=== PATIENT | female | born 1965 | race Caucasian/White ===

== ENCOUNTER 2018-10-03 10:45 | Emergency (ER) | payer OTHER ==
[~2018-10-03] VITALS: Ht 152.4 cm; Wt 54.4 kg
[~2018-10-03 10:45] MED LIST: AMIT50; ASPI81CH PO; ATOR10; Ativan0.5 MG PO; BUPR150T2 PO; CARV3.125 PO; CEPH500 PO; CLOP75 PO; CODACE30 PO; CONEST1.25; ENTRESTO 24 MG1 EACH PO; FURO40 PO; KETO10 PO; METCAR500 PO; MUPI1NAS; NAPR500 PO; OXYACE5T PO; PROACE100 PO; PROC10 PO; PROM25 PO; SIMV40 PO; SPIR25 PO; Vistaril25 MG PO; ZYRTEC10 M2 PO
[2018-10-03] MEDS ORDERED: ALLERGY10 MG PO (11:24)
== END 2018-10-03 13:43 | disposition home or self-care (01) ==
LOC: ER 10:45
DX: S09.90XA Unspecified injury of head, initial encounter (principal); S29.012A Strain of muscle and tendon of back wall of thorax, initial encounter; F17.210 Nicotine dependence, cigarettes, uncomplicated; Z88.1 Allergy status to other antibiotic agents; Z88.5 Allergy status to narcotic agent; Z88.8 Allergy status to other drugs, medicaments and biological substances; Z79.02 Long term (current) use of antithrombotics/antiplatelets; Z79.82 Long term (current) use of aspirin; Z79.899 Other long term (current) drug therapy; W00.0XXA Fall on same level due to ice and snow, initial encounter
CPT/HCPCS: 70450; 71046; 99284-25

== ENCOUNTER 2019-05-30 08:19 | Emergency (ER) | payer OTHER ==
[~2019-05-30] VITALS: Ht 152.4 cm; Wt 55.8 kg
[~2019-05-30 08:19] MED LIST changes: +ALLERGY10 MG PO
[2019-05-30] MEDS ORDERED: ROPI.25 PO (09:03)
[2019-05-30] MEDS ORDERED: TYLECOD3 PO (09:47)
== END 2019-05-30 10:10 | disposition home or self-care (01) ==
LOC: ER 08:19
DX: S20.211A Contusion of right front wall of thorax, initial encounter (principal); I11.0 Hypertensive heart disease with heart failure; I50.9 Heart failure, unspecified; J44.9 Chronic obstructive pulmonary disease, unspecified; E78.00 Pure hypercholesterolemia, unspecified; I25.2 Old myocardial infarction; I25.10 Atherosclerotic heart disease of native coronary artery without angina pectoris; F17.200 Nicotine dependence, unspecified, uncomplicated; Z88.6 Allergy status to analgesic agent; Z88.8 Allergy status to other drugs, medicaments and biological substances; Z88.1 Allergy status to other antibiotic agents; Z79.899 Other long term (current) drug therapy; Z79.82 Long term (current) use of aspirin; W10.9XXA Fall (on) (from) unspecified stairs and steps, initial encounter
CPT/HCPCS: 71101

== ENCOUNTER 2019-08-19 09:20 | Emergency (ER) | payer OTHER ==
[~2019-08-19] VITALS: Ht 152.4 cm; Wt 56.2 kg
[~2019-08-19 09:20] MED LIST changes: +ROPI.25 PO; +TYLECOD3 PO
== END 2019-08-19 10:24 | disposition home or self-care (01) ==
LOC: ER 09:20
DX: R04.0 Epistaxis (principal); J44.9 Chronic obstructive pulmonary disease, unspecified; I11.0 Hypertensive heart disease with heart failure; I50.9 Heart failure, unspecified; I25.10 Atherosclerotic heart disease of native coronary artery without angina pectoris; F17.200 Nicotine dependence, unspecified, uncomplicated; Z88.1 Allergy status to other antibiotic agents; Z88.5 Allergy status to narcotic agent; Z88.8 Allergy status to other drugs, medicaments and biological substances; Z79.82 Long term (current) use of aspirin; Z79.899 Other long term (current) drug therapy
CPT/HCPCS: 99283

== ENCOUNTER 2019-08-19 14:13 | Emergency (ER) | payer OTHER | END 2019-08-19 14:37 | disposition left against medical advice (07) | LOC: ER 14:13 | DX: Z53.21 Procedure and treatment not carried out due to patient leaving prior to being seen by health care provider (principal) ==

== ENCOUNTER 2021-04-18 11:27 | Emergency (ER) | payer OTHER ==
[~2021-04-18] VITALS: Ht 152.4 cm; Wt 59.9 kg
[~2021-04-18 11:27] MED LIST changes: +ACET500 PO; +Aspir 8181 MG PO; +Crestor20 MG PO; +MIRT15 PO
[2021-04-18] MEDS ORDERED: PLAVIX75 MG PO (12:01)
[2021-04-18 12:42] LABS: Albumin, Blood 3.6 g/dL (3.4-5.0); Albumin/Globulin Ratio 0.9 (0.8-1.8); BASOPHILS ABSOLUTE AUTO 0.02 K/mm3 (0.00-0.23); BASOPHILS PERCENT AUTO 0 % (0-2); Bilirubin, Total 0.5 mg/dL (0.1-1.0); Bun/Creatinine Ratio 14.9 (12.0-20.0); Calcium, Blood 8.4 mg/dL (8.5-10.1); Creatinine, Blood 1.21 mg/dL (0.40-1.00); EOSINOPHILS PERCENT AUTO 0 % (0-6); Globulin, Blood 3.9 g/dL (2.2-4.0); Hematocrit 39.7 % (33.0-51.0); Hemoglobin 12.9 g/dL (11.5-16.0); IMMATURE GRAN ABSOLUTE AUTO 0.05 K/mm3 (0.00-0.10); IMMATURE GRAN PERCENT AUTO 1 % (0-1); LYMPHOCYTES ABSOLUTE AUTO 1.81 K/mm3 (0.84-5.20); LYMPHOCYTES PERCENT AUTO 38 % (21-46); MONOCYTES ABSOLUTE AUTO 0.42 K/mm3 (0.16-1.47); MONOCYTES PERCENT AUTO 9 % (4-13); Mean Corpuscular HGB 30.2 pg (26.0-34.0); Mean Corpuscular HGB Conc 32.5 g/dL (31.5-36.5); Mean Corpuscular Volume 93 fL (80-100); Mean Platelet Volume 10.3 fL (9.1-12.4); NEUTROPHILS ABSOLUTE AUTO 2.45 K/mm3 (1.96-9.15); NEUTROPHILS PERCENT AUTO 52 % (41-73); Platelet Count 113 K/mm3 (150-400); Potassium, Blood 4.4 mmol/L (3.5-5.5); RDW Coefficient Variation 14.5 % (11.7-14.2); RDW Standard Deviation 49.5 fL (35.1-46.3); Red Blood Cell Count 4.27 M/mm3 (3.80-5.20); Total Protein, Blood 7.5 g/dL (6.4-8.2); Troponin I 0.035 ng/mL (0.000-0.040); White Blood Cell Count 4.75 K/mm3 (4.00-11.30)
[2021-04-18 13:09] LABS: International Normalized Ratio 1.01; Prothrombin Time Results 10.9 Sec (9.7-11.5)
[2021-04-18] MEDS ORDERED: DEXA6 PO (13:25)
[2021-04-18] MEDS ORDERED: BENZ100A PO (13:25)
== END 2021-04-18 16:25 | disposition home or self-care (01) ==
LOC: ER 11:27
PROVIDERS: Emergency Medicine
DX: U07.1 COVID-19 (principal); J12.82 Pneumonia due to coronavirus disease 2019; J44.9 Chronic obstructive pulmonary disease, unspecified; I25.2 Old myocardial infarction; I11.0 Hypertensive heart disease with heart failure; I50.9 Heart failure, unspecified; I25.10 Atherosclerotic heart disease of native coronary artery without angina pectoris; Z88.1 Allergy status to other antibiotic agents; Z88.5 Allergy status to narcotic agent; Z88.8 Allergy status to other drugs, medicaments and biological substances; Z79.899 Other long term (current) drug therapy; Z79.02 Long term (current) use of antithrombotics/antiplatelets; Z79.82 Long term (current) use of aspirin; Z87.891 Personal history of nicotine dependence
CPT/HCPCS: 36415; 71045; 80053; 83690; 84484; 85025; 85610; 93005; 93010; 96374; 99284-25; J1100

== ENCOUNTER 2021-04-21 06:57 | Emergency (ER) | payer OTHER ==
[~2021-04-21] VITALS: Ht 152.4 cm; Wt 59.9 kg
[~2021-04-21 06:57] MED LIST changes: +BENZ100A PO; +DEXA6 PO; +PLAVIX75 MG PO
[2021-04-21] MEDS ORDERED: Ropinirole HCl0.5 MG PO (07:16)
[2021-04-21 07:53] LABS: BASOPHILS ABSOLUTE AUTO 0.01 K/mm3 (0.00-0.23); BASOPHILS PERCENT AUTO 0 % (0-2); EOSINOPHILS PERCENT AUTO 0 % (0-6); Hematocrit 36.8 % (33.0-51.0); Hemoglobin 12.5 g/dL (11.5-16.0); IMMATURE GRAN ABSOLUTE AUTO 0.04 K/mm3 (0.00-0.10); IMMATURE GRAN PERCENT AUTO 1 % (0-1); LYMPHOCYTES ABSOLUTE AUTO 1.05 K/mm3 (0.84-5.20); LYMPHOCYTES PERCENT AUTO 29 % (21-46); MONOCYTES ABSOLUTE AUTO 0.13 K/mm3 (0.16-1.47); MONOCYTES PERCENT AUTO 4 % (4-13); Mean Corpuscular HGB 31.3 pg (26.0-34.0); Mean Corpuscular Volume 92 fL (80-100); Mean Platelet Volume 11.6 fL (9.1-12.4); NEUTROPHILS ABSOLUTE AUTO 2.37 K/mm3 (1.96-9.15); NEUTROPHILS PERCENT AUTO 66 % (41-73); Platelet Count 174 K/mm3 (150-400); RDW Coefficient Variation 14.5 % (11.7-14.2); RDW Standard Deviation 49.1 fL (35.1-46.3); Red Blood Cell Count 3.99 M/mm3 (3.80-5.20)
[2021-04-21 08:15] LABS: Troponin I 0.04 ng/mL (0.000-0.040)
[2021-04-21 08:21] LABS: Albumin, Blood 3.2 g/dL (3.4-5.0); Albumin/Globulin Ratio 0.8 (0.8-1.8); Bilirubin, Total 0.6 mg/dL (0.1-1.0); Bun/Creatinine Ratio 20.4 (12.0-20.0); Calcium, Blood 8.2 mg/dL (8.5-10.1); Creatinine, Blood 1.08 mg/dL (0.40-1.00); Globulin, Blood 4.1 g/dL (2.2-4.0); Potassium, Blood 5.4 mmol/L (3.5-5.5); Total Protein, Blood 7.3 g/dL (6.4-8.2)
== END 2021-04-21 09:55 | disposition home or self-care (01) ==
LOC: ER 06:57
PROVIDERS: Emergency Medicine
DX: U07.1 COVID-19 (principal); R04.0 Epistaxis; I25.2 Old myocardial infarction; J44.9 Chronic obstructive pulmonary disease, unspecified; I11.0 Hypertensive heart disease with heart failure; I50.9 Heart failure, unspecified; I25.10 Atherosclerotic heart disease of native coronary artery without angina pectoris; Z88.1 Allergy status to other antibiotic agents; Z88.5 Allergy status to narcotic agent; Z88.8 Allergy status to other drugs, medicaments and biological substances; Z79.899 Other long term (current) drug therapy; Z79.02 Long term (current) use of antithrombotics/antiplatelets; Z79.82 Long term (current) use of aspirin; Z87.891 Personal history of nicotine dependence
CPT/HCPCS: 71045; 80053; 82947; 83880; 84484; 85025; 93005; 93010; 99284-25; A9270

== ENCOUNTER 2021-04-23 13:50 | Inpatient (IN) | payer OTHER ==
[~2021-04-23] VITALS: Ht 152.4 cm; Wt 65.3 kg
[~2021-04-23 13:50] MED LIST changes: -ACET500; -Cetirizine HCl10 MG; -ROPINIROLE HCL0.5 MG PO
[2021-04-23 14:37] LABS: BASOPHILS ABSOLUTE AUTO 0.01 K/mm3 (0.00-0.23); BASOPHILS PERCENT AUTO 0 % (0-2); EOSINOPHILS PERCENT AUTO 0 % (0-6); Hematocrit 35.6 % (33.0-51.0); Hemoglobin 11.8 g/dL (11.5-16.0); IMMATURE GRAN ABSOLUTE AUTO 0.08 K/mm3 (0.00-0.10); IMMATURE GRAN PERCENT AUTO 1 % (0-1); LYMPHOCYTES ABSOLUTE AUTO 0.77 K/mm3 (0.84-5.20); LYMPHOCYTES PERCENT AUTO 8 % (21-46); MONOCYTES PERCENT AUTO 2 % (4-13); Mean Corpuscular HGB 30.3 pg (26.0-34.0); Mean Corpuscular HGB Conc 33.1 g/dL (31.5-36.5); Mean Corpuscular Volume 92 fL (80-100); Mean Platelet Volume 11.5 fL (9.1-12.4); NEUTROPHILS ABSOLUTE AUTO 8.61 K/mm3 (1.96-9.15); NEUTROPHILS PERCENT AUTO 89 % (41-73); Platelet Count 129 K/mm3 (150-400); RDW Coefficient Variation 14.5 % (11.7-14.2); RDW Standard Deviation 48.5 fL (35.1-46.3); Red Blood Cell Count 3.89 M/mm3 (3.80-5.20); White Blood Cell Count 9.67 K/mm3 (4.00-11.30)
[2021-04-23 14:59] LABS: Alanine Aminotransfer (ALT/SGP 112 U/L (12-78); Albumin, Blood 2.9 g/dL (3.4-5.0); Albumin/Globulin Ratio 0.7 (0.8-1.8); Alk Phos 57 U/L (50-136); Anion Gap 8 mmol/L (6-16); Aspartate Aminotrans (AST/SGOT 119 U/L (12-37); Bilirubin, Total 0.6 mg/dL (0.1-1.0); Blood Urea Nitrogen 26 mg/dL (8-24); Bun/Creatinine Ratio 28.7 (12.0-20.0); CO2, Blood 22 mmol/L (21-32); Calcium, Blood 7.6 mg/dL (8.5-10.1); Chloride, Blood 110 mmol/L (98-108); Creatinine, Blood 0.91 mg/dL (0.40-1.00); Glomerular Filtration Rate >60 (60-); Glucose, Blood 162 mg/dL (70-99); Potassium, Blood 4.5 mmol/L (3.5-5.5); Sodium, Blood 140 mmol/L (136-145); Total Protein, Blood 6.9 g/dL (6.4-8.2); Troponin I 0.028 ng/mL (0.000-0.040)
[2021-04-23 15:02] LABS: Base Excess Venous -1.7 mmol/L; Bicarbonate Venous 23.4 mmol/L (24.0-30.0); PCO2 Venous 33.6 mmHg (38-42); PO2 Venous 98.3 mmHg (38-42); pH Blood Venous 7.44 (7.34-7.37)
[2021-04-23 15:08] LABS: Source, Urine Voided
[2021-04-23 15:15] LABS: Appearance, Urine Clear (Clear); Bilirubin, Urine Neg (Neg); Blood, Urine 2+ (Neg); Color, Urine Yellow (P-Yellow); Glucose Qualitative, Urine Neg (Neg); Ketones, Urine Neg (Neg); Leukocyte Esterase, Urine Neg (Neg); Nitrite, Urine Neg (Neg); Protein, Urine 3+ (Neg); Specific Gravity, Urine 1.025 (1.003-1.022); Urobilinogen, Urine NORM (Normal)
[2021-04-23 15:21] LABS: Squamous Epithelial Cells Many /hpf (Few)
[2021-04-23 15:22] LABS: Bacteria Mod /hpf
[2021-04-23 15:27] LABS: Granular Casts 0-2 /lpf (0); Red Blood Cells, Urine 0-2 /hpf (0-2); Transitional Epithelial Cells Rare /hpf (0-Rare); White Blood Cells, Urine 0-2 /hpf (0-5)
[2021-04-23] MEDS ORDERED: ACET500 (16:42)
[2021-04-23] MEDS ORDERED: ROPINIROLE HCL0.5 MG PO (16:43)
[2021-04-23] MEDS ORDERED: Cetirizine HCl10 MG (16:44)
--- NOTE | 2021-04-23 18:30 | NUR ---
SHIFT SUMMARY: PT ARRIVED TO UNIT AROUND 1740. ALERT AND ORIETNED DYSPNEA WITH EXERTION COUGHING UP PHLEM INTERMITTENTLY. ABLE TO MAKE NEEDS KNOWN. SATTING MID 80S TO LOW 90S ON 15L NON REBREATHER.
--- NOTE | 2021-04-24 05:17 | NUR ---
ALERT AND ORIENTED X 4. 15 LITERS NONREBREATHER AND 13 LITERS HIGH FLOW NASAL CANNULA. COMPLAINS OF A CYST ON BUTTOCKS THAT IS PAINFUL, OTHERWISE, DENIES ANY PAIN. DENIES ANY NAUSEA. INDEPENDENT TO BSC. DBP HAS BEEN RUNNING IN MID 40S. MD MCCALL WAS NOTIFIED LAST NIGHT. WILL CONTINUE TO OBSERVE/MONITOR FOR SYMPTOMS OF HYPOTENSIVE EPISODES. CURRENTLY, PATIENT IS COMPLETELY NON SYMPTOMATIC. ALL OTHER VITAL SIGNS ARE STABLE.
[2021-04-24 05:26] LABS: BASOPHILS ABSOLUTE AUTO 0.01 K/mm3 (0.00-0.23); BASOPHILS PERCENT AUTO 0 % (0-2); EOSINOPHILS PERCENT AUTO 0 % (0-6); Hematocrit 34.8 % (33.0-51.0); Hemoglobin 11.4 g/dL (11.5-16.0); IMMATURE GRAN PERCENT AUTO 1 % (0-1); LYMPHOCYTES ABSOLUTE AUTO 1.08 K/mm3 (0.84-5.20); LYMPHOCYTES PERCENT AUTO 14 % (21-46); MONOCYTES ABSOLUTE AUTO 0.35 K/mm3 (0.16-1.47); MONOCYTES PERCENT AUTO 5 % (4-13); Mean Corpuscular HGB 30.5 pg (26.0-34.0); Mean Corpuscular HGB Conc 32.8 g/dL (31.5-36.5); Mean Corpuscular Volume 93 fL (80-100); Mean Platelet Volume 10.7 fL (9.1-12.4); NEUTROPHILS ABSOLUTE AUTO 6.14 K/mm3 (1.96-9.15); NEUTROPHILS PERCENT AUTO 80 % (41-73); Platelet Count 109 K/mm3 (150-400); RDW Coefficient Variation 14.6 % (11.7-14.2); RDW Standard Deviation 49.9 fL (35.1-46.3); Red Blood Cell Count 3.74 M/mm3 (3.80-5.20); White Blood Cell Count 7.68 K/mm3 (4.00-11.30)
[2021-04-24 05:56] LABS: Albumin, Blood 2.8 g/dL (3.4-5.0); Albumin/Globulin Ratio 0.8 (0.8-1.8); Bilirubin, Total 0.4 mg/dL (0.1-1.0); Bun/Creatinine Ratio 27.4 (12.0-20.0); Calcium, Blood 7.8 mg/dL (8.5-10.1); Creatinine, Blood 0.99 mg/dL (0.40-1.00); Globulin, Blood 3.7 g/dL (2.2-4.0); Potassium, Blood 4.1 mmol/L (3.5-5.5); Total Protein, Blood 6.5 g/dL (6.4-8.2)
--- NOTE | 2021-04-24 18:40 | NUR ---
PT PLEASANT TODAY. STATES COUGH MED IS HELPING. ENCOURAGED HER TO DEEP BREATHE. MAKES HER COUGH. SHE DID COMPLAIN OF CYST ON BOTTOM. OBSERVED , BUT SEE NO SORES. NO FURTHER MENTION OF THIS. OXYGEN HAS BEEN HELD STEADY TODAY, AND SATS IMPROVED SOME THIS AFT. STILL DROPS WHEN EATING OR COUGHING. CONTINUES TO BE ON 13 L HI FLOW N/C AND NONREBREATHER. BED IN LOW POSITION, CALL LITE IN REACH, CALLS APPROP
--- NOTE | 2021-04-24 22:07 | NUR ---
INCREASED O2 NEEDS PT SUSTAINED IN THE LOW 80'S WITH 15NRB AND 13L HIGH FLOW. RT SWITCHED PT TO AIRVO WITH 55L AND 92% FIO2. PT IS NOW SATTING IN THE LOW 90'S. WILL CONTINUE TO MONITOR AND NOTIFY HOSPITALIST.
--- NOTE | 2021-04-25 05:56 | NUR ---
BREW HOUSE SUPERVISOR SUMMARY PT A/O X4. DENIES PAIN. INDEPENDENT TO BSC WITH QUICK DESATS. PT IS NOW ON 60L WITH 93% FIO2 SATTING IN THE LOW 90'S. PLEASANT AND COOPERATIVE, CALLS APPROPRIATELY. CALL LIGHT WITHIN REACH, WILL CONTINURE.
--- NOTE | 2021-04-25 17:02 | NUR ---
SHIFT SUMMARY ALERT AND ORIENTED X4. PATIENT DENIES PAIN, NAUSEA, VOMITTING DURING SHIFT. PATIENT IS ANXIOUS AND IS CONSTANTLY WATCHING O2 STATS FROM INSIDE ROOM. PATIENT IS CURRENTLY ON 60 LITERS 93 FIO2 AND SATTING IN THE MID 90S THROUGHOUT SHIFT. PATIENT DESATS WITH ACTIVITY BUT REBOUNDS QUICKLY. PATIENT USES BEDSIDE COMMODE INDEPENDENTLY. PATIENT IS PLEASENT AND COOPERATIVE WITH CARE. WILL CONTINUE TO MONITOR UNTIL CHANGE OF SHIFT. CALL LIGHT IN REACH AND BED IN LOWEST POSITION.
[2021-04-25 21:25] LABS: Source, Urine Catheter
[2021-04-25 21:28] LABS: Bilirubin, Urine Neg (Neg); Blood, Urine 4+ (Neg); Glucose Qualitative, Urine Neg (Neg); Ketones, Urine Neg (Neg); Leukocyte Esterase, Urine Neg (Neg); Nitrite, Urine Neg (Neg); Protein, Urine 2+ (Neg); Urobilinogen, Urine 1+ (Normal)
[2021-04-25 21:33] LABS: Appearance, Urine Clear (Clear); Color, Urine Yellow (P-Yellow)
[2021-04-25 21:34] LABS: Bacteria Few /hpf; Red Blood Cells, Urine 25-50 /hpf (0-2); Squamous Epithelial Cells Many /hpf (Few); White Blood Cells, Urine Not Seen /hpf (0-5)
[2021-04-25 22:58] LABS: PCO2 Arterial 35.1 mmHg (35-45); PO2 Arterial 58.7 mmHg (80-100); pH Blood Arterial 7.46 (7.35-7.45)
--- NOTE | 2021-04-25 23:24 | NUR ---
TRANSFER PT TO ROOM VIA MEDICAL FLOOR RN'S ON 15L NRB, ALERT BUT PRESENTS DISORIENTED. SBWR IN PLACE. PT STATES SHE IS DONE WITH THIS. RT TO ROOM. BEGINBS PROCESS OF PLACING PT ON BIPAP. ON NRB, SPO2 80%. PRECEDEX GTT STARTED AT 0.4MCG/MIN. PT STATES "KNOCK ME OUT OR LKET ME GO". BIPAP PLACED ON PT: 07/13 100%, SPO2 NOW 94%. WILL ASSESS FOR NEED TO TITRATE PORECEDEX GTT FARTHER. BED ALARM ON. BP STABLE CURRENTLY.
--- NOTE | 2021-04-25 23:47 | NUR ---
SUMMARY PT NOT TOLERATING AIRVO AND NRB MASK. RT RECOMMENDED BIPAP. DR PERRY CALLED AND SHE ORDERED BIPAP. PROVIDER STATED TO TRY BIPAP BEFORE TRYING MEDS TO CALM HER. PT PLACED ON BIPAP AND NOT TOLERATING WELL. PT CONTINUALLY REMOVED BIPAP MASK AND WOULD RAPIDILY DESAT. DR PERRY CALLED AND SHE ORDERED ABG, RESTRAINTS, PRECEDEX AND PCU TRANSFER. WRIST RESTRAINTS PLACED ON PT AND TRANSFERED TO PCU 14. EDWIN OLIVEIRA RECIEVED REPORT.
[2021-04-26 03:50] LABS: BASOPHILS ABSOLUTE AUTO 0.01 K/mm3 (0.00-0.23); BASOPHILS PERCENT AUTO 0 % (0-2); EOSINOPHILS PERCENT AUTO 0 % (0-6); Hemoglobin 10.4 g/dL (11.5-16.0); Mean Corpuscular HGB 30.7 pg (26.0-34.0); Mean Corpuscular HGB Conc 33.5 g/dL (31.5-36.5); Mean Corpuscular Volume 91 fL (80-100); Mean Platelet Volume 10.9 fL (9.1-12.4); Platelet Count 121 K/mm3 (150-400); RDW Coefficient Variation 14.6 % (11.7-14.2); RDW Standard Deviation 49.6 fL (35.1-46.3); Red Blood Cell Count 3.39 M/mm3 (3.80-5.20); White Blood Cell Count 11.06 K/mm3 (4.00-11.30)
[2021-04-26 03:53] LABS: IMMATURE GRAN ABSOLUTE AUTO 0.18 K/mm3 (0.00-0.10); IMMATURE GRAN PERCENT AUTO 2 % (0-1); LYMPHOCYTES ABSOLUTE AUTO 1.31 K/mm3 (0.84-5.20); LYMPHOCYTES PERCENT AUTO 12 % (21-46); MONOCYTES ABSOLUTE AUTO 0.34 K/mm3 (0.16-1.47); MONOCYTES PERCENT AUTO 3 % (4-13); NEUTROPHILS ABSOLUTE AUTO 9.22 K/mm3 (1.96-9.15); NEUTROPHILS PERCENT AUTO 83 % (41-73)
[2021-04-26 04:08] LABS: Alanine Aminotransfer (ALT/SGP 97 U/L (12-78); Albumin, Blood 2.7 g/dL (3.4-5.0); Albumin/Globulin Ratio 0.8 (0.8-1.8); Alk Phos 149 U/L (50-136); Anion Gap 5 mmol/L (6-16); Aspartate Aminotrans (AST/SGOT 66 U/L (12-37); Bilirubin, Total 0.7 mg/dL (0.1-1.0); Blood Urea Nitrogen 28 mg/dL (8-24); Bun/Creatinine Ratio 35.9 (12.0-20.0); CO2, Blood 27 mmol/L (21-32); Calcium, Blood 7.8 mg/dL (8.5-10.1); Chloride, Blood 110 mmol/L (98-108); Creatinine, Blood 0.78 mg/dL (0.40-1.00); Globulin, Blood 3.3 g/dL (2.2-4.0); Glomerular Filtration Rate >60 (60-); Glucose, Blood 138 mg/dL (70-99); Potassium, Blood 4.5 mmol/L (3.5-5.5); Sodium, Blood 142 mmol/L (136-145)
--- NOTE | 2021-04-26 06:17 | NUR ---
SHIFT SUMMARY ASSUMED CARE OF PT AT 2320. PT IS A/OX4. PT WAS TAKEN OFF RESTRAINTS BEUCASE SHE SAID THAT SHE FELT LIKE SHE WAS IN A BETTER MIND SET. PT REMAINED ON THE BIPAP T/O THE NIGHT. PT DESATS WHEN TAKEN OFF FOR PILLS TO 80%. PT VIDALES IS DRAINING WITH GRAVITY, CLEAR YELLOW URINE. CALL LIGHT IN REACH, BED IN LOWEST POSTION, BED ALARM ON.
--- NOTE | 2021-04-26 15:23 | NUR ---
Spiritual care visit conducted. Patient immediately tells me that she is anxious and exhausted and wants to be medically sedated and then awakened when her numbers improve. She explains that she will request a transfer to another hospital if she can't "get the help I (she) needs." Patient states, "If I had a gun close to me I would grab it so fast and Baam (then she makes her hand into a gun and pulls the trigger." We then discuss her Church belief system, her family unit complications and that she honestly isn't wanting to as much as get relief from her current struggle which for her is more than she can bear. We talk about ways to manage her anxiety and I provided prayer for her. Patient responds well and displays evidence of increased hope (at least for the moment). I will continue to remain available to patient and family.
--- NOTE | 2021-04-26 18:56 | NUR ---
SHIFT SUMMARY PT NOT DOING WELL. IT HAS BEEN A STRUGGLE ALL DAY KEEPING PT COMPLIANT WITH BIPAP/CPAP. PT HAS BEEN ANXIOUS AND EASILY AGITATED. PT CURRENTLY ON AIRVO 75L,100% FIO2 WITH 15L NRB OVER THAT. SATS 88-93%. PT HAS BEEN DEMANDING TO BE INTUBATED ALL DAY. BETWEEN PALLIATIVE CARE, SPIRITUAL CARE, RESP THERAPY AND PROVIDERS/NURSES PT HAS BEEN COMFORTED AND MORE COOPERATIVE WITH CARE. PT NOW DEMANDING TO LEAVE. STATES SHE "WANTS TO ", "I JUST CANT DO THIS ANYMORE, IM DONE SUFFERING". AWAITING DR SALEH TO COME SPEAK WITH HER. PT HAS NEW PICC LINE TO BRADLY, SITE BLED ALOT, DRESSINGS CHANGED TWICE. PT HAS 20G TO LEFT AC AND TO LEFT HAND, BOTH SITES WNL, DRESSINGS C/D/I. CLINIMIX AND LIPIDS STARTED. BLOOD SUGAR CHECKS ORDERED FOR Q6HRS. PRECEDEX INF AT 0.7MCG. LEVOPHED ON STANDBY SINCE APPROX 1645. PRESSURES IMPROVED. VIDALES TO GRAVITY DRAINING NICOLE URINE. PT MOVES EXTREMITIES INDPENDENTLY. WILL REPORT TO ONCOMING SHIFT.
--- NOTE | 2021-04-26 21:54 | NUR ---
REFUSED CBG AT .
[2021-04-27 04:43] LABS: Magnesium, Blood 2.6 mg/dL (1.6-2.4); Phosphorus, Blood 3.2 mg/dL (2.5-4.9); Triglycerides 404 mg/dL (30-160)
--- NOTE | 2021-04-27 06:17 | NUR ---
END OF SHIFT ZOYA: DR. SALEH SPOKE WITH PATIENT AT CHANGE OF SHIFT AND I THINK IT REALLY CLEARED UP SOME OF THE CONFUSION SHE HAD REGARDING HER AIRWAY AND WHAT A FULL CODE/DNR STATUS REALLY MEANS. HER DOSE OF REMERON WAS DOUBLED AND GIVEN WITH 2100 MEDS AND SHE WAS COOPERATIVE AND MUCH MORE RELAXED AFTER. PRECEDEX HAS REMAINED AT 0.7. SHE WAS COOPEATIVE AFTER EXPLAINING HER O2 NEEDS AND WAS WILLING TO LET US PLACE HER ON CPAP FOR THE EVENING. SHE HAS TOLERATED IT ALL NIGHT AT 100%. SHE HAD ONE EPISODE THIS MORNING WHERE SHE HAD LOW O2 SATS AND WAS BREATHING RAPIDLY. I WAS IN THERE TO HELP CALM HER DOWN AND SHE REPOSITIONED HERSELF ON HER SIDE. SHE REVOVERED TO 93% AND WENT BACK TO SLEEP. SHE WANTS TO REMAIN A FULL CODE UNTIL DISCUSSING FURTHER WITH HER FAMILY AND MD'S.
--- NOTE | 2021-04-27 09:20 | NUR ---
UPDATE STARTING AROUND 0800 PT MORE ANXIOUS AND SOB. RESP THERAPIST WORKING WITH PT AND ADJUSTING BIPAP/CPAP. ATTEMPTED TO PLACE PT ON AIRVO AT PREVIOUS SETTINGS (75L/100% WITH NRB AT 15L OVER), BUT PT DID NOT TOLERATE AND DESATED QUICKLY. DR MCCALL ROUNDED ON PT AND WE DISCUSSED ADDING ADDITION MEDICATIONS FOR ANXIETY AND BIAPAP COMPLIANCE. 0840 ATIVAN 2MG GIVEN, PT TACHYPNEIC AND DIAPHORETIC. PLAN TO MOVE PT TO ICU FOR INTUBATION. 0850 LEVOPHED STARTED BACK AT 2MCG 0920 PT FATUMA ICU 6. BEDSIDE REPORT TO TISH PINEDA. 0930 FAMILY UPDATED (DAUGHTER ALEJANDRA) ON PTS CONDITION AND MOVE TO ICU
--- NOTE | 2021-04-27 10:08 | NUR ---
Assumed care of pt upon arrival to ICU 6 at 0848. Pt slid from PCU bed to ICU bed using 5 staff. Pt arrived wearing CPAP 14, 100% FiO2. Tachypneic. Labored breathing. Pt visibly in distress. Changed to BiPAP 22/17, 100% FiO2 by RT. Breathing remained laborious. Pt had precedex infusing at 0.7 mcg/kg/hr. Low BP. Marine Steward at bedside to emergently intubate patient. Effort is as follows: 858- levophed started at 10 mcg/min. precedex stopped. 0902- 50 mg propofol 902- BP 56/45. 100 mcg neosynephrine given. 4 mg versed given. 0904- 50 mg rocuronium given 903- intubated with 7.5 cm ETT. 24 cm ATG. Positive color change on colormetric CO2 detector. Bilateral breath sounds auscultated. 0904- 100 mcg neosynephrine given OG tube placed. OG to LIS. CXR obtained. Placed to ventilator, ACVC, sats remained in high 60s and low 70s. RT and Dr Mendenhall titrated settings. Pt is currently ACPC, rate 18, PI- 14, PEEP 18, FiO2 91%. Plan to add paralytic.
[2021-04-27 11:53] LABS: PO2 Arterial 120 mmHg (80-100)
[2021-04-27 11:55] LABS: PCO2 Arterial 79 mmHg (35-45); pH Blood Arterial 7.07 (7.35-7.45)
--- NOTE | 2021-04-27 12:00 | NUR ---
Pt proned at 1045. Added paralytic. SpO2 stable.
[2021-04-27 14:35] LABS: PCO2 Arterial 50.3 mmHg (35-45); pH Blood Arterial 7.23 (7.35-7.45)
--- NOTE | 2021-04-27 18:12 | NUR ---
SHIFT SUMMARY Neuro: Receiving propofol at 20 mcg/kg/min. Versed 2 mg/hr. BIS 40-60. Rocuronium 3 mcg/kg/min. TOF 1/4. Unresponsive. Cough and gag absent. PERRL. No movement noted to extremities. Musculoskeletal: Mobility limited by cords, lines, tubes, intubation, and sedation. Pt receiving paralytic for ventilator tolerance. Currently in prone positioning. Plan to maintain position for 16 hours. Respiratory: 7.5 cm ETT remains at 24 cm at gums placement. Vent settings ACPC- rate 26, PI 23, PEEP 18, FiO2 90%. Actual RR 26. Tidal volumes approx 515. SpO2 90%. No sputum suctioned from ETT this shift. Lungs diminished t/o. Cardiac: SR per monitor. Requires 5 mcg/min levophed. Vasopressin. No edema. Capillary refill less than 3 seconds BUE and BLE. 2+ pulses radial, pedal, and posttibial. Unremarkable heart sounds. Pt has PICC to [facility] as well as 2 peripheral IVs. GI: OG tube with feeds and flushes per orders. Hypoactive BT. Last BM today. No signs of abd tenderness with palpation. : Kong catheter in place with excellent output of isiah urine. Skin: Bleeding from bilateral nares. Dr Mendenhall aware. Plan to continue to monitor. No blood noted from mouth. Psychosocial: Unable to assess pt due to intubation and sedation. This RN did not have contact with pt's family today. Dr Mendenhall updated pt's daughter on plan of care. Will continue to closely monitor until care handoff and bedside report with oncoming RN.
--- NOTE | 2021-04-27 19:15 | NUR ---
DAUGHTER UPDATED VIA TELEPHONE
[2021-04-28 05:28] LABS: BASOPHILS ABSOLUTE AUTO 0.02 K/mm3 (0.00-0.23); BASOPHILS PERCENT AUTO 0 % (0-2); EOSINOPHILS PERCENT AUTO 0 % (0-6); Hematocrit 29.5 % (33.0-51.0); Mean Corpuscular HGB 30.5 pg (26.0-34.0); Mean Corpuscular HGB Conc 33.9 g/dL (31.5-36.5); Mean Corpuscular Volume 90 fL (80-100); Mean Platelet Volume 12.1 fL (9.1-12.4); Platelet Count 90 K/mm3 (150-400); RDW Coefficient Variation 14.1 % (11.7-14.2); RDW Standard Deviation 46.9 fL (35.1-46.3); Red Blood Cell Count 3.28 M/mm3 (3.80-5.20); White Blood Cell Count 15.37 K/mm3 (4.00-11.30)
[2021-04-28 05:33] LABS: IMMATURE GRAN ABSOLUTE AUTO 0.31 K/mm3 (0.00-0.10); IMMATURE GRAN PERCENT AUTO 2 % (0-1); LYMPHOCYTES PERCENT AUTO 9 % (21-46); MONOCYTES ABSOLUTE AUTO 0.26 K/mm3 (0.16-1.47); MONOCYTES PERCENT AUTO 2 % (4-13); NEUTROPHILS ABSOLUTE AUTO 13.48 K/mm3 (1.96-9.15); NEUTROPHILS PERCENT AUTO 88 % (41-73)
[2021-04-28 05:48] LABS: Albumin, Blood 1.9 g/dL (3.4-5.0); Anion Gap 7 mmol/L (6-16); Blood Urea Nitrogen 28 mg/dL (8-24); Bun/Creatinine Ratio 44.4 (12.0-20.0); CO2, Blood 31 mmol/L (21-32); Calcium, Blood 7.2 mg/dL (8.5-10.1); Chloride, Blood 98 mmol/L (98-108); Creatinine, Blood 0.63 mg/dL (0.40-1.00); Glomerular Filtration Rate >60 (60-); Glucose, Blood 398 mg/dL (70-99); Magnesium, Blood 2.2 mg/dL (1.6-2.4); Phosphorus, Blood 2.5 mg/dL (2.5-4.9); Potassium, Blood 3.8 mmol/L (3.5-5.5); Sodium, Blood 136 mmol/L (136-145)
--- NOTE | 2021-04-28 06:22 | NUR ---
DR. PERRY NOTIFIED OF GLUCOSE AT 398. (SEE EMAR FOR LATE ADMIN OF LANTUS 5UNITS) NO OTHER INTERVENTIONS AFTER GIVING THE 10 UNITS SLIDING SCALE ORDER. CONTINUE TO MONITOR.
--- NOTE | 2021-04-28 07:05 | NUR ---
DAUGHTER UPDATED VIA TELEPHONE: PATIENT OFF PRESSORS. FIO2 DECREASE. HIGH GLUCOSE LEVELS - ADDED LONG ACTING LANTUS.
--- NOTE | 2021-04-28 07:09 | NUR ---
END OF SHIFT NOTE. SEE DAUGHTER UPDATES FOR END OF SHIFT UPDATES AND ADD: PLATELETES 90 WBC 15.37 INCREASED WEAKNESS TO PULSES ON L SIDE. RADIAL LEFT PULSE NOW BY DOPPLER.
--- NOTE | 2021-04-28 08:38 | NUR ---
Assumed care of pt at 0700. Report received from Amalia PINEDA. Initially rocuronium at 2 mcg/kg/min, TOF 4/4, this was increased to 2.5 mcg/kg/min as patient coughed and dropped SpO2 into mid 80s with repositioning. Initially, levophed was off and BP was stable. Levophed required to be restarted this AM as pt became hypotensive again. At this time, levophed is 6 mcg/min. Initial vent settings this AM ACPC with rate 26, PI 23, PEEP 18, FiO2 50%. RT changed ventilator settings because pt's tidal volumes were in 600s and pt is petite. New vent settings ACPC with rate 26, PI 15, PEEP 18, FiO2 60%. SpO2 91%. Pt in prone positioning. Pt has been in this position since 5 on 04/27. Dr Mendenhall requested pt changed from prone to supine today at noon, so pt will be compliant with facility proning schedule.
--- NOTE | 2021-04-28 11:38 | NUR ---
1200 ASSESSMENT Neuro: Receiving propofol at 25 mcg/kg/min. Versed 2 mg/hr. BIS 40-60. Rocuronium 3 mcg/kg/min. Recently increased. TOF 4/4. Will continue to reassess. Unresponsive. Cough and gag absent. PERRL. No movement noted to extremities. Musculoskeletal: Mobility limited by cords, lines, tubes, intubation, and sedation. Pt receiving paralytic for ventilator tolerance. Currently in supine positioning. Proning ended at 1030. Respiratory: 7.5 cm ETT remains at 24 cm at gums placement. Vent settings ACPC- rate 26, PI 15, PEEP 18, FiO2 80%. Actual RR 26. Tidal volumes 400-600 mL. SpO2 93%. No sputum suctioned from ETT. Lungs diminished t/o. Cardiac: SR per monitor. Requires 10 mcg/min levophed. Vasopressin. Trace edema BUE and BLE. Facial edema noted from proning. Capillary refill less than 3 seconds BUE and BLE. 1+ pulses radial, pedal, and posttibial. Unremarkable heart sounds. Pt has PICC to [facility] as well as 2 peripheral IVs. GI: OG tube with feeds and flushes per orders. Hypoactive BT. Last BM today. No signs of abd tenderness with palpation. 55 mL residual measured. : Kong catheter in place with excellent output of isiah urine. Skin: Decreased bleeding from bilateral nares. Dr Mendenhall aware. Plan to continue to monitor. No blood noted from mouth. Skin overall dusky in appearance. Dry mucous membranes. Psychosocial: Unable to assess pt due to intubation and sedation. Pt's daughter updated on visitation policy for COVID + patients and she plans to visit today.
[2021-04-28 12:03] LABS: Glucose, Blood 1277 mg/dL (70-99)
[2021-04-28 12:46] LABS: Glucose, Blood 415 mg/dL (70-99)
--- NOTE | 2021-04-28 18:56 | NUR ---
SUMMARY Neuro: Receiving propofol at 25 mcg/kg/min. Versed 2 mg/hr. BIS 40-60. Rocuronium 3 mcg/kg/min. TOF 4/4. Compliant with ventilator, however. Unresponsive. Cough and gag absent. PERRL. No movement noted to extremities. Musculoskeletal: Mobility limited by cords, lines, tubes, intubation, and sedation. Pt receiving paralytic for ventilator tolerance. Currently in supine positioning. Plan to prone tonight. Respiratory: 7.5 cm ETT remains at 24 cm at gums placement. Vent settings ACPC- rate 26, PI 15, PEEP 18, FiO2 90%. Actual RR 26. Tidal volumes 400-600 mL. SpO2 91%. No sputum suctioned from ETT. Lungs diminished t/o. Cardiac: SR per monitor. Requires 13 mcg/min levophed. Vasopressin. Trace edema BUE and BLE. Facial edema noted from proning. Capillary refill less than 3 seconds BUE and BLE. 1+ pulses radial, pedal, and posttibial. Unremarkable heart sounds. Clubbed nail beds. Pt has PICC to [facility] as well as 1 peripheral IV. GI: OG tube with feeds and flushes per orders. Hypoactive BT. Last BM today. No signs of abd tenderness with palpation. 100 mL residual measured at most recent check. : Kong catheter in place with excellent output of isiah urine. Skin: Decreased bleeding from bilateral nares. Dr Mendenhall aware. Plan to continue to monitor. No blood noted from mouth. Skin overall dusky in appearance. Dry mucous membranes. Psychosocial: Unable to assess pt due to intubation and sedation. Pt's daughter updated on visitation policy for COVID + patients and visited outside of pt's window with her daughter since 9 year old daughter cannot come into ICU.
[2021-04-29 00:26] LABS: Glucose, Blood 458 mg/dL (70-99)
--- NOTE | 2021-04-29 03:00 | NUR ---
DR. SALEH NOTIFIED OF INCREASING GLUCOSE LEVELS. RECENT INCREASE OF LANTUS FROM 5 TO 20 UNITS SUBQ. AND INCREASE SLIDING SCALE TO HIGH DOSAGE. COVERAGE GIVEN. RECHECK GLUCOSE HIGHER AFTER RECHECK. PER DR. SALEH CHANGE LANTUS TO BID - KEEP SAME DOSAGE. PER DR. SALEH ADD ONE TIME 10U NOW. SEE ORDERS.
--- NOTE | 2021-04-29 06:29 | NUR ---
END OF SHIFT SUMMARY: VASOPRESSING GTT OFF. LEVOPHED GTT DECREASED DOWN TO 3. PROPOFOL GTT AT 30. ROCURONIUM GTT AT 2.5. DR. SALEH NOTIFIED OF INCREASING GLUCOSE CHECKS DESPITE INCREASED SLIDING SCALES AND INCREASING LANTUS. CHANGES TO INSULIN ORDERS WERE MADE. LANTUS IS NOW BID AT 20UNITS AND INSULIN HUMULIN-R 10U EXTRA DOSE GIVEN. COREMAKER SUPERVISOR TO PASS ALONG INFORMATION THAT PATIENT MIGHT NEED ULTRASOUND OF LUE DUE TO DOPPLER PULSE CHECKS IN RADIAL. EXTREMITY IS COLDER THAN OTHER EXTREMITIES. BLOOD PRESSURE READS LOWER THAN OTHER ARM. FRANDY REBOLLAR RN ASSUMED CARE OF ORAL CARE, TURNS, I/O, VITALS, AND MED PASS. OTHERWISE RN DIGESTIVE IS PRIMARY RN.
--- NOTE | 2021-04-29 06:47 | NUR ---
DAUGHTER UPDATED VIA TELEPHONE
--- NOTE | 2021-04-29 06:48 | NUR ---
DR. SALEH NOTIFIED OF FSBS 453. 15 UNITS GIVEN PER SLIDING SCALE. NO ADDITIONAL INTERVENTIONS AT THIS TIME.
--- NOTE | 2021-04-29 07:15 | NUR ---
Assumed care of pt at 0700. Report received from Amalia PINEDA. Drips: Propofol 30 mcg/kg/min. BIS 40-60 Versed OFF Levophed 3 mcg/min Vent: ACPC rate: 26, PI: 15, PEEP 18, FiO2 90%. SpO2 98% ETT: 7.5 cm, 24 cm at [facility]
--- NOTE | 2021-04-29 09:07 | NUR ---
UPDATE Rocuronium off. Pt RR 27, Tidal volumes 600 mL, SpO2 90% or greater. Vent settings ACPC rate: 22, PI 12, PEEP 18, FiO2 70%.
--- NOTE | 2021-04-29 12:31 | NUR ---
Patient changed from prone to supine positioning. Bed bath given, pt tolerated well. Drips: 30 mcg/kg/min propofol Levophed off. BP 100/51 (65) Rocuronium off. Vent settings: ACPC rate: 22, PI 12, PEEP 18, FiO2 80%. SpO2 91% ETT: 7.5 cm, 24 cm ATG
--- NOTE | 2021-04-29 17:04 | NUR ---
Time spent at bedside with pt's Sarah, Radha. She is processing and needing to verbalize, talk thru her mom and family's Covid experience. Radha was allowed to express feelings of anxiety, guilt, questions. We discussed four possible outcomes for her mom, advanced care planning, what her mom's wishes were or would be in those scenarios and we spoke very specifically about code status and CPR. I reviewed it with her and then Dr Coelho did also and reiteratied all the reasons CPR would not be beneficial at this time to Radha. She is going to confer with pt's parents and let us know when they come to a decision on that. Radha was given [facility] Care number to contact with further questions or to provide family input/information. Radha very receptive to rapport building and verbalized appreciation for the time her mom's bedside RN spent with her as well as the time that I spent with her and 's input also. explained that pt's prognosis is poor primarily due to her extensive underlying comorbidities of severe COPD, CAD, CHF. Pal Care to make contact daily for support and advanced care planning. At bedside, pt has facial edema after proning. Extremeties cold and edematous. Pt does not demonstrate nonverbal indicators of pain or distress. She has soft retraings in place. She is unresponsive to us. Resp rate 24 and biox 89%. Pt is sedated.
[2021-04-29 18:43] LABS: Anion Gap 5 mmol/L (6-16); Blood Urea Nitrogen 35 mg/dL (8-24); Bun/Creatinine Ratio 48.1 (12.0-20.0); CO2, Blood 41 mmol/L (21-32); Calcium, Blood 7.3 mg/dL (8.5-10.1); Chloride, Blood 92 mmol/L (98-108); Creatinine, Blood 0.73 mg/dL (0.40-1.00); Glomerular Filtration Rate >60 (60-); Glucose, Blood 332 mg/dL (70-99); Magnesium, Blood 2.4 mg/dL (1.6-2.4); Phosphorus, Blood 1.4 mg/dL (2.5-4.9); Potassium, Blood 2.9 mmol/L (3.5-5.5); Sodium, Blood 138 mmol/L (136-145)
--- NOTE | 2021-04-29 19:30 | NUR ---
SUMMARY Neuro: Receiving propofol at 40 mcg/kg/min. Versed off. Rocuronium off. Responsive to pressure stimulus. Cough and gag present. Unable to assess pupils due to severe facial edema. Musculoskeletal: Mobility limited by cords, lines, tubes, intubation, and sedation. Currently in supine positioning. Plan to prone tonight. Respiratory: 7.5 cm ETT remains at 24 cm at gums placement. Vent settings ACPC- rate 22, PI 12, PEEP 18, FiO2 100%. Actual RR 24. Tidal volumes 400-600 mL. SpO2 95%. No sputum suctioned from ETT. Lungs diminished t/o. Cardiac: SR per monitor. Levophed off. Vasopressin off. Trace edema BUE and BLE. Facial edema noted from proning. Capillary refill less than 3 seconds BUE and BLE. 1+ pulses radial, pedal, and posttibial. Unremarkable heart sounds. Clubbed nail beds. Pt has PICC to [facility] as well as 1 peripheral IV. GI: OG tube with feeds and flushes per orders. Hypoactive BT. Last BM today. No signs of abd tenderness with palpation. 10 mL residual measured at most recent check. : Kong catheter in place with excellent output of isiah urine. Skin: Skin overall dusky in appearance. Dry mucous membranes. Psychosocial: Unable to assess pt due to intubation and sedation. Pt's daughter visited in room with patient during visiting hours and then visited outside pt's window with pt's granddaughter. Daughter met with palliative care and also received update from Dr He.
--- NOTE | 2021-04-29 20:00 | NUR ---
Assumed care. Report recieved from prakash RN. PT in bed, sedated and on ventilator. Vent settings:AC/PC 27/07//100%. OG tube in place, Pivot 1.5 running at 25 ml/hr. Pt has PICC in BRADLY, 20 GA IV in L/AC. Pump settings are as follows: propofol 40 mcg/kg/min, Sodium Bicarb 125 ml/hr, Insulin 9.3 uits/hr. Kong catheter in place, draining yellow urine. No acute needs noted, will continue to monitor.
[2021-04-30 03:55] LABS: PCO2 Arterial 50.9 mmHg (35-45); PO2 Arterial 67.5 mmHg (80-100); pH Blood Arterial 7.55 (7.35-7.45)
[2021-04-30 04:23] LABS: BASOPHILS ABSOLUTE AUTO 0.01 K/mm3 (0.00-0.23); BASOPHILS PERCENT AUTO 0 % (0-2); EOSINOPHILS PERCENT AUTO 0 % (0-6); Hematocrit 24.2 % (33.0-51.0); Hemoglobin 8.1 g/dL (11.5-16.0); IMMATURE GRAN ABSOLUTE AUTO 0.26 K/mm3 (0.00-0.10); IMMATURE GRAN PERCENT AUTO 2 % (0-1); LYMPHOCYTES ABSOLUTE AUTO 0.73 K/mm3 (0.84-5.20); LYMPHOCYTES PERCENT AUTO 6 % (21-46); MONOCYTES ABSOLUTE AUTO 0.24 K/mm3 (0.16-1.47); MONOCYTES PERCENT AUTO 2 % (4-13); Mean Corpuscular HGB 30.8 pg (26.0-34.0); Mean Corpuscular HGB Conc 33.5 g/dL (31.5-36.5); Mean Corpuscular Volume 92 fL (80-100); Mean Platelet Volume 11.9 fL (9.1-12.4); NEUTROPHILS ABSOLUTE AUTO 10.94 K/mm3 (1.96-9.15); NEUTROPHILS PERCENT AUTO 90 % (41-73); NRBC ABSOLUTE 0.03 K/mm3 (0.00-0.02); NRBC Auto 0.2 /100 WBC (0.0-0.2); Platelet Count 70 K/mm3 (150-400); RDW Coefficient Variation 14.2 % (11.7-14.2); RDW Standard Deviation 48.2 fL (35.1-46.3); Red Blood Cell Count 2.63 M/mm3 (3.80-5.20); White Blood Cell Count 12.18 K/mm3 (4.00-11.30)
[2021-04-30 04:38] LABS: Anion Gap 4 mmol/L (6-16); Blood Urea Nitrogen 30 mg/dL (8-24); Bun/Creatinine Ratio 43.9 (12.0-20.0); CO2, Blood 43 mmol/L (21-32); Chloride, Blood 93 mmol/L (98-108); Creatinine, Blood 0.68 mg/dL (0.40-1.00); Glomerular Filtration Rate >60 (60-); Glucose, Blood 251 mg/dL (70-99); Magnesium, Blood 2.6 mg/dL (1.6-2.4); Phosphorus, Blood 3.4 mg/dL (2.5-4.9); Sodium, Blood 140 mmol/L (136-145)
--- NOTE | 2021-04-30 06:11 | NUR ---
Shift summary. Pt continues in bed, sedated and on ventilator. Vent settings: AC/PC //18/90% Fi02. OG tube in place, pivot 1.5 running at 25 ml/hr. PICC line in BRADLY, 20 GA IV in L/AC. IV pump settings: Propofol 45 mcg/kg/min, Insulin 5 units/hr, potassium chloride 50 ml/hr for AM potassium level of 3.0. Rectal tube in place. Kong catheter in place, draining yellow urine. See shift assessment for details. Will continue to monitor and report off to dayshift RN.
--- NOTE | 2021-04-30 16:59 | NUR ---
Case conference with pt's ICU RNs and DR. Smith visited outside the window with granddaughter today but did not come in. I called to touch bases with her and LM for her to call me back if she would like. Will maintain daily contact or attempts at contact. No significant changes in pt's condition today per and RN.
--- NOTE | 2021-04-30 17:53 | NUR ---
The patient remains on the ventilator and is sedated with a propofol IV drip, infusing at 45mcgs. Ventilator settings are pressure control, FiO2: 90%, PEEP: 18. The patient's breathing pattern becomes laborous with activity such as repositioning.Sputum specimen was collected today and sent to the lab. The patient is in NSR on the monitor and is normotensive. OGT in place with tube feeding infusing. Gastric residuals equal 2mLs. Rectal tube in place with minimal output. Stool is loose and brown. : the patient was given IV lasix today and diuresed.
[2021-04-30 18:40] LABS: Hematocrit 26.1 % (33.0-51.0); Hemoglobin 8.5 g/dL (11.5-16.0)
--- NOTE | 2021-04-30 19:19 | NUR ---
Assumed care. Report recieved from prakash PINEDA. Pt in bed, sedated and on ventilator. Vent settings: AC/PC 27/03//90%. OG tube in place, pivot 1.5 running at goal rate of 25 ml/hr. PICC line in BRADLY, 20 GA IV in L/AC. Pump settings: propofol 45 mcg/kg/min, NS 10 ml/hr. Rectal tube inplace, minimal brown stool noted. Kong catheter in place, draining yellow urine. No acute needs noted at this time, will continue to monitor.
[2021-05-01 04:16] LABS: BASOPHILS ABSOLUTE AUTO 0.02 K/mm3 (0.00-0.23); BASOPHILS PERCENT AUTO 0 % (0-2); Hematocrit 24.7 % (33.0-51.0); Hemoglobin 8.1 g/dL (11.5-16.0); LYMPHOCYTES ABSOLUTE AUTO 0.77 K/mm3 (0.84-5.20); LYMPHOCYTES PERCENT AUTO 5 % (21-46); MONOCYTES ABSOLUTE AUTO 0.38 K/mm3 (0.16-1.47); MONOCYTES PERCENT AUTO 3 % (4-13); Mean Corpuscular HGB 30.8 pg (26.0-34.0); Mean Corpuscular HGB Conc 32.8 g/dL (31.5-36.5); Mean Corpuscular Volume 94 fL (80-100); Mean Platelet Volume 12.4 fL (9.1-12.4); NRBC ABSOLUTE 0.04 K/mm3 (0.00-0.02); NRBC Auto 0.3 /100 WBC (0.0-0.2); Platelet Count 80 K/mm3 (150-400); RDW Coefficient Variation 14.8 % (11.7-14.2); RDW Standard Deviation 51.2 fL (35.1-46.3); Red Blood Cell Count 2.63 M/mm3 (3.80-5.20); White Blood Cell Count 14.86 K/mm3 (4.00-11.30)
[2021-05-01 04:19] LABS: EOSINOPHILS PERCENT AUTO 0 % (0-6); IMMATURE GRAN ABSOLUTE AUTO 0.29 K/mm3 (0.00-0.10); IMMATURE GRAN PERCENT AUTO 2 % (0-1); NEUTROPHILS PERCENT AUTO 90 % (41-73)
[2021-05-01 04:25] LABS: Anion Gap 2 mmol/L (6-16); Blood Urea Nitrogen 38 mg/dL (8-24); Bun/Creatinine Ratio 48.6 (12.0-20.0); CO2, Blood 41 mmol/L (21-32); Calcium, Blood 8.2 mg/dL (8.5-10.1); Chloride, Blood 98 mmol/L (98-108); Creatinine, Blood 0.78 mg/dL (0.40-1.00); Glomerular Filtration Rate >60 (60-); Glucose, Blood 233 mg/dL (70-99); Magnesium, Blood 2.3 mg/dL (1.6-2.4); Phosphorus, Blood 4.2 mg/dL (2.5-4.9); Potassium, Blood 3.1 mmol/L (3.5-5.5); Sodium, Blood 141 mmol/L (136-145)
--- NOTE | 2021-05-01 06:15 | NUR ---
Shift summary. Pt continues in bed, sedated and on ventilator. Vent settings: AC/PC 22/8/18/90%. OG tube in place, tube feed running at goal rate 25 ml/hr. PICC line in BRADLY. IV pump settings: propofol 45 mcg/kg/min, NS 10 ml/hr, Potassium Chloride 50 ml/hr (1st bag of 3). Potassium replacement per electrolyte protocol. Rectal tube in place, draining brown liquid stool. Kong catheter in place, draining yellow urine, 1325 out this shift. Vital signs stable, will continue to monitor and report off to dayshift RN.
--- NOTE | 2021-05-01 12:00 | NUR ---
REASSESSMENT PT REMAINS SEDATED AND INTUBATED. PROPOFOL INCREASED FROM 45 MCG/KG/MIN TO 55MCG/KG/MIN THROUGHOUT THE MORNING TO HELP WITH PT COMFORT SHE WAS MOVING HER HEAD AND SHOULDERS FREQUENTLY AND SEEMED AGITATED. PRN ATIVAN ALSO GIVEN AND PT APPEARS MORE COMFORTABLE CURRENTLY. LUGNS REMAIN CLEAR, VENT SETTINGS THE SAME THIS MORNING. ONLY SMALL AMT OF SPUTUM SUCTIONED BY RT. SEVERE FACIAL EDEMA. ELEVATED PT'S HEAD AFTER SHE WAS UNPRONED TO HELP. TOLERATING TUBE FEED. SPOKE WITH PT'S DAUGHTER AND PROVIDED UPDATE. CONTINUING TO MONITOR.
--- NOTE | 2021-05-01 13:39 | NUR ---
Case conference with pt's RN and Dr sidhu am. No significant changes. Daughter, Radha was updated by bedside RN. Pal Care to remain available.
--- NOTE | 2021-05-01 16:35 | NUR ---
SHIFT SUMMARY PT REMAINS INTUBATED AND SEDATED. LUNGS ARE CLEAR, MINIMAL SECRETIONS FROM ETT. SEDATION INCREASED AND PRN ANXIOLYTICS GIVEN THROUGHOUT THE DAY TO HELP WITH PT COMFORT AND VENTILATOR COMPLIANCE. SR, BP STABLE. TOELRATING TUBE FEEDS. RECTAL TUBE WITH MINIMAL LIQUID OUTPUT. PT'S DAUGHTER WAS UPDATED BY NURSING STAFF THIS MORNING. CONTINUING TO MONITOR.
--- NOTE | 2021-05-01 16:58 | NUR ---
SINCE PT'S BATH HER SPO2 HAS BEEN IN THE MID 80S. FIO2 HAD TO BE TURNED UP TO 100% TO GET SPO2 87-88%. PT IS STACKING BREATHS ON THE VENTILATOR. PROPOFOL INCREASED AND ATIVAN GIVEN WITHOUT ANY IMPROVMENT IN SPO2 OR COMPLIANCE WITH VENTILATOR. SPOKE WITH DR. GONZALEZ AND RECEIVED ORDERS FOR FENTANYL AND INCREASE IN ATIVAN ORDERS. HE GAVE INSTRUCTIONS TO TRY THOSE FIRST, IF PT IS STILL HAVING TROUBLE, START PRECEDEX GTT, AND IF THAT DOESN'T WORK TO CALL HIM BACK AND WE WILL MOVE TOWARDS PARALYTICS.
--- NOTE | 2021-05-01 19:22 | NUR ---
Assumed care. Report recieved from prakash PINEDA. Pt continues on ventilator, sedated and in bed. Vent settings: AC/PC 27/03//100%. OG tube in place, tube feed at goal rate 25 ml/hr. PICC line in BRADLY, IV pump settings: propofol 55, precedex 0.5, NS 10 ml/hr. Rectal tube in place, draining brown liquid stool. Kong catheter in place, draining yellow urine. No acute needs noted at this time, will continue to monitor.
--- NOTE | 2021-05-01 21:28 | NUR ---
Conversation with daughter Tali. At 2114, called to update patient's daughter on her condition. Her daughter said that she had spoken with the patient's other family members and it was their wish to have a DNR order put in for the patient based on her overall condition at this time. Verified with Niurka PINEDA. Will call physician and obtain order for DNR.
[2021-05-02 04:22] LABS: Hematocrit 23.6 % (33.0-51.0); Hemoglobin 7.6 g/dL (11.5-16.0); Mean Corpuscular HGB 30.8 pg (26.0-34.0); Mean Corpuscular HGB Conc 32.2 g/dL (31.5-36.5); Mean Corpuscular Volume 96 fL (80-100); Mean Platelet Volume 12.1 fL (9.1-12.4); NRBC ABSOLUTE 0.04 K/mm3 (0.00-0.02); NRBC Auto 0.3 /100 WBC (0.0-0.2); Platelet Count 57 K/mm3 (150-400); RDW Coefficient Variation 15.2 % (11.7-14.2); RDW Standard Deviation 53.2 fL (35.1-46.3); Red Blood Cell Count 2.47 M/mm3 (3.80-5.20); White Blood Cell Count 12.62 K/mm3 (4.00-11.30)
[2021-05-02 04:28] LABS: PCO2 Arterial 55.6 mmHg (35-45); PO2 Arterial 69.3 mmHg (80-100); pH Blood Arterial 7.43 (7.35-7.45)
[2021-05-02 04:41] LABS: Anion Gap 3 mmol/L (6-16); Blood Urea Nitrogen 44 mg/dL (8-24); Bun/Creatinine Ratio 59.9 (12.0-20.0); CO2, Blood 37 mmol/L (21-32); Calcium, Blood 9.1 mg/dL (8.5-10.1); Chloride, Blood 102 mmol/L (98-108); Creatinine, Blood 0.74 mg/dL (0.40-1.00); Glomerular Filtration Rate >60 (60-); Glucose, Blood 263 mg/dL (70-99); Magnesium, Blood 2.2 mg/dL (1.6-2.4); Phosphorus, Blood 5.1 mg/dL (2.5-4.9); Potassium, Blood 3.7 mmol/L (3.5-5.5); Sodium, Blood 142 mmol/L (136-145)
[2021-05-02 05:30] LABS: BAND PERCENT MAN 39 % (0-8); BASOPHILS PERCENT MAN 0 % (0-2); EOSINOPHILS PERCENT MAN 0 % (0-6); LYMPHOCYTES ABSOLUTE MAN 0.12 K/mm3 (0.84-5.20); LYMPHOCYTES PERCENT MAN 1 % (21-46); MONOCYTES ABSOLUTE MAN 0.25 K/mm3 (0.16-1.47); MONOCYTES PERCENT MAN 2 % (4-13); NEUTROPHILS ABSOLUTE MAN 12.24 K/mm3 (1.96-9.15); SEG NEUTROPHILS PERCENT MAN 58 % (41-73); TOTAL CELLS COUNTED 100
--- NOTE | 2021-05-02 06:14 | NUR ---
Shift summary. Pt continues in bed, sedated and on ventilator. Pt proned at 1999. Vent settings: AC/PC ///100%. OG tube in place, running at goal rate 25 ml/hr. PICC line in BRADLY, IV pump settings: Propofol 45 mcg/kg/min, Precedex 0.4 mcg/kg/hr, NS 10 ml/hr. Rectal tube in place. Kong catheter in place, draining isiah yellow urine. Will continue to monitor and report off to dayshift RN.
--- NOTE | 2021-05-02 14:03 | NUR ---
Case conference this am with pt's bedside RN, who had just updated pt's jamie by phone. New DNR order noted from late last night. Pt is not improving and is currently proned, sedated, PEEP 18 and FIO2 @ 100%. VM left for jamie to check in wtih her. No response as of 1400.
[2021-05-02 17:03] LABS: PCO2 Arterial 50.7 mmHg (35-45); PO2 Arterial 52.8 mmHg (80-100); pH Blood Arterial 7.46 (7.35-7.45)
[2021-05-02 17:13] LABS: Alanine Aminotransfer (ALT/SGP 50 U/L (12-78); Albumin, Blood 1.3 g/dL (3.4-5.0); Albumin/Globulin Ratio 0.3 (0.8-1.8); Alk Phos 140 U/L (50-136); Anion Gap 6 mmol/L (6-16); Aspartate Aminotrans (AST/SGOT 44 U/L (12-37); Bilirubin, Total 0.8 mg/dL (0.1-1.0); Blood Urea Nitrogen 48 mg/dL (8-24); Bun/Creatinine Ratio 70.4 (12.0-20.0); CO2, Blood 33 mmol/L (21-32); Calcium, Blood 8.6 mg/dL (8.5-10.1); Chloride, Blood 104 mmol/L (98-108); Creatinine, Blood 0.68 mg/dL (0.40-1.00); Globulin, Blood 4.3 g/dL (2.2-4.0); Glomerular Filtration Rate >60 (60-); Glucose, Blood 221 mg/dL (70-99); Magnesium, Blood 2.2 mg/dL (1.6-2.4); Phosphorus, Blood 4.1 mg/dL (2.5-4.9); Potassium, Blood 3.6 mmol/L (3.5-5.5); Sodium, Blood 143 mmol/L (136-145); Total Protein, Blood 5.6 g/dL (6.4-8.2)
[2021-05-02 17:23] LABS: Hematocrit 24.4 % (33.0-51.0); Mean Corpuscular HGB 31.3 pg (26.0-34.0); Mean Corpuscular HGB Conc 32.8 g/dL (31.5-36.5); Mean Corpuscular Volume 95 fL (80-100); Mean Platelet Volume 12.9 fL (9.1-12.4); NRBC ABSOLUTE 0.09 K/mm3 (0.00-0.02); NRBC Auto 0.8 /100 WBC (0.0-0.2); RDW Coefficient Variation 15.1 % (11.7-14.2); RDW Standard Deviation 52.9 fL (35.1-46.3); Red Blood Cell Count 2.56 M/mm3 (3.80-5.20); White Blood Cell Count 10.64 K/mm3 (4.00-11.30)
[2021-05-02 17:35] LABS: Platelet Count 47 K/mm3 (150-400)
--- NOTE | 2021-05-02 17:51 | NUR ---
PT HAD A VERY STABLE DAY UP UNTIL 1630. AFTER BEING TURNED PT STARTED THROWING LOTS OF PVCS AND BECAME JUNCTIONAL. SHE THEN BECAME HYPOXIC, SITTING AT 85%. AFTER STOPPING PRECEDEX DUE TO QT LENGTH, INCREASING PROPOFOL TO 60 AND PUSHING 4MG OF ATIVAN AND 50 OF FENTANYL PT STOPPED PULLING TIDAL VOLUMES UP TO 1L AND SLOWLY HER OXYGEN SATURATION WAS RAISED TO 91%. A BOLUS WAS STARTED TO DEAL WITH HYPOTENSION WELL. EKG DONE, CXR AND LABS DRAWN. DAUGHTER UPDATED THIS MORNING BY THE RN AND JUST NOW BY DR. GONZALEZ. VIDALES AND RECTAL TUBE STILL IN PLACE.
[2021-05-02 18:08] LABS: BAND PERCENT MAN 25 % (0-8); BASOPHILS PERCENT MAN 0 % (0-2); EOSINOPHILS PERCENT MAN 1 % (0-6); LYMPHOCYTES ABSOLUTE MAN 0.63 K/mm3 (0.84-5.20); LYMPHOCYTES PERCENT MAN 6 % (21-46); METAMYELOCYTE ABSOLUTE MAN 0.31 K/mm3 (0.00-0.00); METAMYELOCYTE PERCENT MAN 3 % (0-0); MONOCYTES PERCENT MAN 1 % (4-13); NEUTROPHILS ABSOLUTE MAN 9.46 K/mm3 (1.96-9.15); SEG NEUTROPHILS PERCENT MAN 64 % (41-73); TOTAL CELLS COUNTED 100
--- NOTE | 2021-05-02 18:51 | NUR ---
pt sats are at 84%. talked with dr. barnes. will prone right after shift report
--- NOTE | 2021-05-02 20:15 | NUR ---
ASSESSMENT/ASSUMED CARE PT INTUBATED AND SEDATED ON PROPOFOL. VENT SETTINGS AC/PC 22 PEEP 18 FIO2 100%. SPO2 IN THE LOW 80'S. LUNGS CLEAR. HEART RATE REGULAR, BP STABLE. EDEMA AROUND EYES. BT+HYPOACTIVE. OG WITH TUBE FEED VITAL HP AT 25 ML/HR, WATER 30 ML Q4HR. RESIDUAL 210 ML, REFED. PICC LINE TO RIGHT UPPER ARM DRSG INTACT. PROPOFOL AT 50 MCQ/KG/MIN, PRECEDEX ON STANDBY, AND NS AT 10 ML/HR. VIDALES CATH PATENT AND DRAINING YELLOW URINE. RECTAL TUBE WITH LIQUID BROWN STOOL IN TUBE. PT PRONED WITH HEAD TO RIGHT, RIGHT ARM AND KNEE UP, LEFT ARM AND KNEE DOWN. PILLOWS UNDER WENDY AREAS. DR KAY AT BEDSIDE. PT MED WITH ATIVAN. PT TO BE STARTED ON NIMBEX. BIS MONITOR APPLIED.
--- NOTE | 2021-05-03 04:35 | NUR ---
SEDATION BIS 20-25, TOF 0/4, DECREASED NIMBEX TO 1 MCQ/KG/MIN AND PROPOFOL TO 40 MCQ/KG/MIN. PRECEDEX ON STANDBY.
[2021-05-03 04:40] LABS: Hematocrit 27.6 % (33.0-51.0); Hemoglobin 8.6 g/dL (11.5-16.0); Mean Corpuscular HGB 31.3 pg (26.0-34.0); Mean Corpuscular HGB Conc 31.2 g/dL (31.5-36.5); Mean Platelet Volume 12.6 fL (9.1-12.4); NRBC ABSOLUTE 0.12 K/mm3 (0.00-0.02); NRBC Auto 0.5 /100 WBC (0.0-0.2); Platelet Count 67 K/mm3 (150-400); RDW Coefficient Variation 15.6 % (11.7-14.2); RDW Standard Deviation 57.1 fL (35.1-46.3); Red Blood Cell Count 2.75 M/mm3 (3.80-5.20); White Blood Cell Count 22.65 K/mm3 (4.00-11.30)
[2021-05-03 04:42] LABS: Mean Corpuscular Volume 100 fL (80-100)
[2021-05-03 04:54] LABS: Anion Gap 3 mmol/L (6-16); Blood Urea Nitrogen 60 mg/dL (8-24); Bun/Creatinine Ratio 82.6 (12.0-20.0); CO2, Blood 36 mmol/L (21-32); Calcium, Blood 8.4 mg/dL (8.5-10.1); Chloride, Blood 103 mmol/L (98-108); Creatinine, Blood 0.73 mg/dL (0.40-1.00); Glomerular Filtration Rate >60 (60-); Glucose, Blood 216 mg/dL (70-99); Magnesium, Blood 2.5 mg/dL (1.6-2.4); Phosphorus, Blood 6.1 mg/dL (2.5-4.9); Potassium, Blood 4.6 mmol/L (3.5-5.5); Sodium, Blood 142 mmol/L (136-145)
[2021-05-03 05:29] LABS: BAND PERCENT MAN 28 % (0-8); BASOPHILS PERCENT MAN 0 % (0-2); EOSINOPHILS ABSOLUTE MAN 0.67 K/mm3 (0.00-0.68); EOSINOPHILS PERCENT MAN 3 % (0-6); LYMPHOCYTES ABSOLUTE MAN 1.13 K/mm3 (0.84-5.20); LYMPHOCYTES PERCENT MAN 5 % (21-46); METAMYELOCYTE ABSOLUTE MAN 0.67 K/mm3 (0.00-0.00); METAMYELOCYTE PERCENT MAN 3 % (0-0); MONOCYTES PERCENT MAN 4 % (4-13); MYELOCYTE ABSOLUTE MAN 0.22 K/mm3 (0.00-0.00); MYELOCYTE PERCENT MAN 1 % (0-0); NEUTROPHILS ABSOLUTE MAN 19.02 K/mm3 (1.96-9.15); SEG NEUTROPHILS PERCENT MAN 56 % (41-73); TOTAL CELLS COUNTED 100
--- NOTE | 2021-05-03 06:17 | NUR ---
SHIFT SUMMARY PT CONT INTUBATED AND ON MECH VENT. LUNGS CLEAR BUT DECREASED IN BASES. PT PRONED DURING THE NIGHT WITH NO IMPROVEMENT IN SPO2. VENT SETTINGS PC RR 22, PI 12, TI 0.8, PEEP 18, FIO2 100%. SPO2 HAS BEEN 79-83% ALL NIGHT. SUCTIONING LARGE AMT SECRECTIONS VIA NARES. INCREASED EDEMA NOTED TO FACE. PT STARTED ON NIMBEX DURING THE NIGHT DUE TO PARADOXICAL BREATHING. NIMBEX STARTED AT 2 MCQ/KG/MIN BUT DECREASED TO 1 MCQ/KG/MIN DUE TO TOF 0/4. PT SEDATED WITH PROPOFOL AND PRECEDEX. TITRATED PROPOFOL DOWN TO 40 MCQ/KG/MIN AND PRECEDEX TO STANDBY DUE TO BIS OF 20-25, BIS NOW 35 AND TOF 2/4. RESTRAINTS REMOVED AFTER PT STARTED ON NIMBEX. BP STABLE, HEART RATE 80-90'S. PT ON TUBE FEED AT GOAL RATE, VITAL HP AT 25 ML/HR, WATER 30 ML Q4HR. RECTAL TUBE DRAINING LIQUID BROWN STOOL. VIDALES CATH PATENT. PT TURNED AND REPOSITIONED FREQUENTLY. REPORT TO ON COMING NURSE
--- NOTE | 2021-05-03 08:23 | NUR ---
ASSUMED CARE REPORT FROM ZEN RN AT 0700. PT INTUBATED, SEDATED, PARALYZED AND PRONED. VENT SETTINGS AC/PC /12/18/100%. LUNGS CLEAR, SCANT SECRETIONS THROUGH ETT. O2 SATS 79-81%. SAME THROUGH NOC PER RN. NIMBEX GTT INFUSING, TO4 0/4, TITRATING NIMBEX DOWN. PROPOFOL GTT INFUSING, BIS 10'S. TITRATING PROPOFOL DOWN. NO COUGH/GAG/SWALLOW REFLEX. SIGNIFICANT FACIAL EDEMA, UNABLE TO LIFT EYELIDS TO EXAMINE PUPILS D/T SWELLING. HEAD TURNED AND GEL PAD PLACED. PLAN TO SUPINE AT 1200. TUBE FEEDS AT GOAL. VIDALES PATENT, DRAINING CLEAR YELLOW URINE TO GRAVITY. RECTAL TUBE IN PLACE, DRAINING LIQUID BROWN STOOL TO GRAVITY. 3+ EDEMA TO HANDS, 1+ TO BLE. BP STABLE, SR RATE 90-100'S ON MONITOR. PICC TO [facility], DRESSING C/D/I. WILL CONTINUE TO MONITOR.
--- NOTE | 2021-05-03 11:28 | NUR ---
CHANGE IN CONDITION/DR MINOR UPDATE TO FAMILY AFTER DR MINOR ROUNDS, MEDICATED c BENADRY 50 MG IVP FOR POSSIBLE ALLERGIC REACTION AND FACIAL SWELLING. PEEP INCREASED TO 20. HR INCREASED TO 120'S, BP DECREASED, O2 SATS 76%. DR MINOR NOTIFIED. ALSO DISCUSSED DECREASED UO. PEEP DECREASED TO 18, LEVO GTT STARTED. DAUGHTER, ALEJANDRA, UPDATED BY DR MINOR. PT REMAINS DNR c FULL TREATMENT AT THIS TIME. WILL REMAIN PRONE AT THIS TIME D/T INSTABILITY. WILL CONTINUE TO MONITOR.
--- NOTE | 2021-05-03 15:15 | NUR ---
Palliative Care visit made to bedside. Sarah, Radha and Poolroom Table Attendant in the room already. Pt with noted facial and francesco UE edema. She is unresponsive. Biox in the low 70's. Sarah is aware of the significance. We discussed pt's cont decline and EOL status, regardless of whether sarah decides on comfort care. Sarah needing time to process and expresses feeling selfish for this. We discussed what her mother wanted, expressed, what AD states and the weight that removes from from Radha. Radha admits that she reread her mom's advanced directive several times this week and it is clear that her mom would not want to remain on life support. Plan is for Radha to gather additional family members for support. Prior to my visit I discussed whether daughter Court would be allowed in with property portfolio officer and bedside RN. I also discussed with Radha that her mom would not want her to risk Court's well being. Court has significant health concerns and would be high risk if she were to contract Covid. Radha agreeable to not bringing Court in the hospital and ICU staff do not want to put her at risk. I updated property portfolio officer and bedside RN. Sarah well aware that pt may prior to tomorrow when sarah plans to extubate her mom and place her on comfort care after they arrive between 9-11 tomorrow am. Sarah was told Poolroom Table Attendant and Palliative Care can be present and Radha would like that. Process explained in detail. I updated coworkers, who will remain available for extubation. property portfolio officer to update Dr Mendenhall on all of above and daughter's plan.
--- NOTE | 2021-05-03 15:42 | NUR ---
Spiritual care visit conducted. I provide prayer for patient while no one is in the room because patient told me on an earlier visit when she was able to communicate that this activity is meaningful to her. I then discuss patient's condition with patient's daughter, Radha. She discusses her thought process about extubation and how she will get there eventually in her own way. She knows that decision is upon her and realizes how grave her mother's condition is. I also meet with Palliative Care RN Lili and Radha in the patient's rm as Radha continue to try to process the harsh decline on a multi-organ spectrum with Mrs. Mendenhall. I provide emotional support, gentle coaching and a calming presence. I will continue to be available Radha as she tell me a possible extubation is planned tomorrow between 9-11.
--- NOTE | 2021-05-03 17:26 | NUR ---
SHIFT SUMMARY PT REMAINS INTUBATED AND SEDATED. VENT SETTINGS UNCHANGED, AC/PC /12/18/100%. LUNGS CLEAR. SCANT SECRETIONS. O2 SATS 50'S. PT SUPINED AT 1600. PLAN TO MAKE COMFORT CARE TOMORROW, SEE PALLATIVE CARE NOTE. NIMBEX ON STANDBY, PT OVERBREATHING VENT, RATE 30'S. NOT ALARMING. PROPOFOL GTT INFUSING. LEVO GTT INFUSING. ST, RATE 100'S. VIDALES AND RECTAL TUBE PATENT, DRAINING TO GRAVITY. OLIGURIC. DID NOT RESPOND TO IVF BOLUS. WILL CONTINUE TO MONITOR UNTIL REPORT TO ONCOMING NURSE.
--- NOTE | 2021-05-03 22:05 | NUR ---
PT PT'S HR BEGAN TO DROP, CAROTID PULSE FOUND WITH DOPPLER. THIS RN AND TIAN RN AT BEDSIDE WITH PT. AT 22:16, MONITOR SHOWS HR IN 40S, PT IN PEA. TIME OF CALLED AT THIS TIME. DAUGHTER AND MOTHER NOTIFIED OF PT'S . DONOR LINE CONTACTED, PT INELIGIBLE. [facility] CONTACTED, AWAITING ARRIVAL.
== END 2021-05-03 22:16 | DRG 207 ==
LOC: ER 13:50 → ICUE 16:58 → MEDS 16:58 → PCU 16:58 → MEDS 17:21 → PCU 04-25 23:04 → ICUE 04-27 08:44
PROVIDERS: Emergency Medicine; Family Medicine; Internal Medicine; Internal Medicine Critical Care Medicine; ADMIT Hospitalist
PROC: 8E0ZXY6 Isolation (ICD-10-PCS; principal; 2021-04-23)
PROC: 3E033XZ Introduction of Vasopressor into Peripheral Vein, Percutaneous Approach (ICD-10-PCS; 2021-04-23)
PROC: 3E0333Z Introduction of Anti-inflammatory into Peripheral Vein, Percutaneous Approach (ICD-10-PCS; 2021-04-23)
PROC: 5A09457 Assistance with Respiratory Ventilation, 24-96 Consecutive Hours, Continuous Positive Airway Pressure (ICD-10-PCS; 2021-04-26)
PROC: XW033E5 Introduction of Remdesivir Anti-infective into Peripheral Vein, Percutaneous Approach, New Technology Group 5 (ICD-10-PCS; 2021-04-26)
PROC: 02HV33Z Insertion of Infusion Device into Superior Vena Cava, Percutaneous Approach (ICD-10-PCS; 2021-04-26)
PROC: 0BH18EZ Insertion of Endotracheal Airway into Trachea, Via Natural or Artificial Opening Endoscopic (ICD-10-PCS; 2021-04-27)
PROC: 5A1955Z Respiratory Ventilation, Greater than 96 Consecutive Hours (ICD-10-PCS; 2021-04-27)
DX: U07.1 COVID-19 (principal); J12.82 Pneumonia due to coronavirus disease 2019; J80 Acute respiratory distress syndrome; I50.22 Chronic systolic (congestive) heart failure; F17.210 Nicotine dependence, cigarettes, uncomplicated; I46.8 Cardiac arrest due to other underlying condition; Z78.1 Physical restraint status; Z66 Do not resuscitate; Z51.5 Encounter for palliative care; I11.0 Hypertensive heart disease with heart failure; I25.10 Atherosclerotic heart disease of native coronary artery without angina pectoris; I95.9 Hypotension, unspecified; G25.81 Restless legs syndrome; F41.9 Anxiety disorder, unspecified; E78.5 Hyperlipidemia, unspecified; J43.9 Emphysema, unspecified; E11.65 Type 2 diabetes mellitus with hyperglycemia; E78.00 Pure hypercholesterolemia, unspecified; I25.2 Old myocardial infarction; Z95.1 Presence of aortocoronary bypass graft; Z86.73 Personal history of transient ischemic attack (TIA), and cerebral infarction without residual deficits; Z98.890 Other specified postprocedural states; Z88.1 Allergy status to other antibiotic agents; Z88.6 Allergy status to analgesic agent; Z88.8 Allergy status to other drugs, medicaments and biological substances; Z79.82 Long term (current) use of aspirin; Z79.899 Other long term (current) drug therapy
CPT/HCPCS: 31500; 36415; 36569; 36600; 71045; 71046; 71260; 80048; 80053; 80069; 81001; 82330; 82728; 82803; 82947; 83735; 83880; 84100; 84132; 84145; 84478; 84484; 85014; 85018; 85025; 85379; 86141; 87070; 87106; 87205; 93005; 93010; 94002; 94003; 94640; 94660; 94762; 96365; 96375; 99285-25; A9270; C1751; C8929; C9113; J1100; J1200; J1650; J1815; J1940; J2060; J2250; J2370; J2405; J2704; J2930; J3010; J3480; J7030; J7040; J7050; J7060; J7070; J7120; Q9957; Q9967

== ENCOUNTER → 2021-04-23 | Outpatient (CLI) | payer OTHER ==
[~2021-04-23] MED LIST changes: +ACET500; +Cetirizine HCl10 MG; +ROPINIROLE HCL0.5 MG PO; +Ropinirole HCl0.5 MG PO
[2021-04-23 11:15] LABS: BASOPHILS ABSOLUTE AUTO 0.01 K/mm3 (0.00-0.23); BASOPHILS PERCENT AUTO 0 % (0-2); EOSINOPHILS PERCENT AUTO 0 % (0-6); Hematocrit 36.5 % (33.0-51.0); Hemoglobin 12.3 g/dL (11.5-16.0); IMMATURE GRAN ABSOLUTE AUTO 0.11 K/mm3 (0.00-0.10); IMMATURE GRAN PERCENT AUTO 1 % (0-1); LYMPHOCYTES ABSOLUTE AUTO 0.82 K/mm3 (0.84-5.20); LYMPHOCYTES PERCENT AUTO 6 % (21-46); MONOCYTES ABSOLUTE AUTO 0.42 K/mm3 (0.16-1.47); MONOCYTES PERCENT AUTO 3 % (4-13); Mean Corpuscular HGB 30.6 pg (26.0-34.0); Mean Corpuscular HGB Conc 33.7 g/dL (31.5-36.5); Mean Corpuscular Volume 91 fL (80-100); NEUTROPHILS ABSOLUTE AUTO 11.48 K/mm3 (1.96-9.15); NEUTROPHILS PERCENT AUTO 89 % (41-73); RDW Coefficient Variation 14.5 % (11.7-14.2); RDW Standard Deviation 48.3 fL (35.1-46.3); Red Blood Cell Count 4.02 M/mm3 (3.80-5.20); White Blood Cell Count 12.84 K/mm3 (4.00-11.30)
[2021-04-23 11:20] LABS: Mean Platelet Volume 10.8 fL (9.1-12.4); Platelet Count 140 K/mm3 (150-400)
[2021-04-23 11:23] LABS: Alanine Aminotransfer (ALT/SGP 123 U/L (12-78); Albumin, Blood 3.2 g/dL (3.4-5.0); Albumin/Globulin Ratio 0.8 (0.8-1.8); Alk Phos 62 U/L (40-126); Anion Gap 11 mmol/L (6-16); Aspartate Aminotrans (AST/SGOT 115 U/L (12-37); Bilirubin, Total 0.4 mg/dL (0.1-1.0); Blood Urea Nitrogen 29 mg/dL (8-24); Bun/Creatinine Ratio 23.2 (12.0-20.0); CO2, Blood 23 mmol/L (21-32); Chloride, Blood 104 mmol/L (98-108); Creatinine, Blood 1.25 mg/dL (0.40-1.00); Glomerular Filtration Rate 44 (60-); Glucose, Blood 148 mg/dL (70-99); Potassium, Blood 4.5 mmol/L (3.5-5.5); Sodium, Blood 138 mmol/L (136-145); Total Protein, Blood 7.2 g/dL (6.4-8.2)
[2021-04-23 11:25] LABS: Troponin I <0.017 ng/mL (0.000-0.040)
== END | disposition home or self-care (01) ==
LOC: LAB SHORT 11:06
PROVIDERS: Physician Assistant Surgical
DX: R07.9 Chest pain, unspecified (principal)
CPT/HCPCS: 80053; 83880; 84484; 85025; 85379